=== PATIENT | female | born 1965 | race American Indian/Alaskan Native ===

== ENCOUNTER 2017-10-17 10:56 | Outpatient (CLI) | payer OTHER ==
--- NOTE | 2017-10-17 11:56 | Ultrasound Report ---
BILATERAL DIGITAL DIAGNOSTIC MAMMOGRAM with CAD and RIGHT BREAST ULTRASOUND: 10/17/17 CLINICAL: Right palpable breast lump. History of cysts. COMPARISON:07/02/15 left mammogram and 10/27/14 right mammogram. FINDINGS: The breasts are heterogeneously dense, which may obscure small masses. A partially circumscribed right retroareolar asymmetry correlates with the palpable lump.No architectural distortion or suspicious calcifications. The left breast is negative.. Ultrasound of the right breast demonstrated an oval benign retroareolar cyst at 12 o'clock measuring 2.0 x 1.6 x 1.5 cm. Mild thickening of the wall. The cyst is nontender and has not been painful according to the patient. IMPRESSION: A benign 2 cm right retroareolar breast cyst. Negative left breast. BI-RADS CATEGORY: 2 -- Benign RECOMMENDATION: Clinical followup and routine mammographic screening in one year. ACR BI-RADS MAMMOGRAPHIC CODES: 0 = Needs additional imaging evaluation; 1 = Negative; 2 = Benign; 3 = Probably benign; 4 = Suspicious; 5 = Malignant; 6 = Known biopsy-proven malignancy COMMENT: 1. Dense breast tissue, i.e., adenosis, fibrocystic changes, etc., may obscure an underlying neoplasm. 2. Approximately 10% of cancers are not detected with mammography. 3. A negative mammography report should not delay biopsy if a clinically suspicious mass is present. COMMENT: Patient follow-up letters are generated by our [employer] application.
== END 2017-10-17 10:57 | disposition home or self-care (01) ==
LOC: SPVWC 10:56
PROVIDERS: ATTEND Family Medicine Adult Medicine
DX: N60.01 Solitary cyst of right breast (principal)
CPT/HCPCS: 77066

== ENCOUNTER 2019-08-27 08:00 | Outpatient (CLI) | payer OTHER | END 2019-08-27 08:01 | disposition home or self-care (01) | LOC: SPVWC 08:00 | PROVIDERS: ATTEND Family Medicine Adult Medicine | DX: Z12.31 Encounter for screening mammogram for malignant neoplasm of breast (principal) | CPT/HCPCS: 77067 ==

== ENCOUNTER 2021-03-07 08:30 | Outpatient (CLI) | payer OTHER ==
--- NOTE | 2021-03-07 09:35 | Mammography Report ---
DIGITAL SCREENING MAMMOGRAM WITH CAD, 03/07/2021 CLINICAL INFORMATION / INDICATION: Routine screening mammography. SCREENING MAMMO Z12.31 TECHNIQUE: Digital bilateral 2D mammography was obtained in the craniocaudal and mediolateral obliqu e projections. This examination was interpreted with the benefit of Computer-Aided Detection analysis . COMPARISON: 08/27/2019, 10/17/2017. FINDINGS: Breast Density: There are scattered areas of fibroglandular density. No dominant mass, suspicious calcifications, or architectural distortion in either breast. IMPRESSION: No mammographic evidence of malignancy. Follow up recommendation: Routine yearly BI-RADS Category 1: Negative. A "normal" or negative report should not discourage follow up or biopsy of a clinically significant f inding. A written summary of these findings will be mailed to the patient. The patient will be entered into a mammography reporting system which will generate a reminder letter for the patient's next appointmen t at the appropriate interval. The [employer] recommends yearly mammograms starting at age 40 and continuing as l bernadette as a woman is in good health. Breast MRI is recommended for women with an approximate 20-25% or greater lifetime risk of breast cancer, including women with a strong family history of breast or ova kay cancer or who have been treated for Hodgkin's disease. Signer Name: Anthony Mcgee MD Signed: 03/07/2021 9:31 AM Workstation Name: [id number]
== END 2021-03-07 08:31 | disposition home or self-care (01) ==
LOC: SPVWC 08:30
DX: Z12.31 Encounter for screening mammogram for malignant neoplasm of breast (principal)
CPT/HCPCS: 77067